=== PATIENT | female | born 1960 | race Caucasian/White ===

== ENCOUNTER 2022-05-07 10:36 | Outpatient (CLI) | payer OTHER, SELFPAY ==
--- OUTSIDE RECORDS SUMMARY | 2022-05-07 10:39 | XMS_ITS | Clinical Summary ---
:1960 Author Organization [facility] Address [address] [place] [address]. [place] [address] Care Team Providers Name Role Phone Jen De Jesus MD Primary Care Provider Allergies No known active allergies Medications Medication Sig Dispensed Refills Start Date End Date Status levothyroxine 0 05/16/2021 Activ e (SYNTHROID/LEVOTHROID) 137 MCG tablet sertraline (ZOLOFT) 100 Take 50 mg by 0 10/18/2021 Active MG tablet mouth daily zolpidem (AMBIEN) 5 MG TAKE ONE TABLET 0 10/07/2021 Active tablet BY MOUTH AT BEDTIME NEEDED FOR SLEEP Family History Medical History Relation Comments Colon Cancer Father Hypertension Father Relation Status Comments Father Social History Tobacco Use Types Packs/Day Years Used Date Former Smoker Smokeless Tobacco: Never Used Alcohol Habits Answer Date Recorded How often do you have a drink containing alcohol? Not asked How many drinks containing alcohol do you have on a typical Not asked day when you are drinking? How often do you have six or more drinks on one occasion? 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 Pulse 56 11/17/2021 9:51 AM CATERING ADMINISTRATIVE ASSISTANT Temperature - - Respiratory Rate 19 11/17/2021 9:51 AM CATERING ADMINISTRATIVE ASSISTANT Oxygen Saturation 100% 11/17/2021 9:51 AM CATERING ADMINISTRATIVE ASSISTANT Inhaled Oxygen Concentration - - Weight - - Height - - Body Mass Index - - Plan of Treatment Health Maintenance Due Date Last Done Comments ADVANCE CARE PLANNING 1960 ANNUAL REVIEW OF HM ORDERS 1960 CT COLONOGRAPHY 1958 FIT-DNA (Cologuard) 1960 FIT 1960 FLEX SIG 1960 MAMMO SCREENING 1960 PREVENTIVE CARE VISIT 1958 HIV SCREENING 1973 HEPATITIS C SCREENING 1976 PAP 1979 LIPID 2003 LUNG CANCER SCREENING 2008 ZOSTER IMMUNIZATION (1 of 2) 2008 DTAP/TDAP/TD IMMUNIZATION (2 06/14/2016 06/14/2006 - Td or Tdap) PHQ-2 (once per calendar 09/26/2021 year) COVID-19 Vaccine (3 - Booster 02/22/2022 10/25/2021, for Ko series) 01/01/2021 INFLUENZA VACCINE (Season 05/27/2022 07/02/2010 Ended) COLONOSCOPY 11/17/2031 11/17/2021, 11/17/2021 COLORECTAL CANCER SCREENING 11/17/2031 HEPATITIS B IMMUNIZATION Aged Out No long er eligible based on patient's age to complete this to pic IPV IMMUNIZATION Aged Out No longer eligi ble based on patient's age to complete this to pic MENINGITIS IMMUNIZATION Aged Out No longe r eligible based on patient's age to complete this to pic Pneumococcal Vaccine: Aged Out No longer eligible based Pediatrics (0 to 5 Years) and on patient's age to At-Risk Patients (6 to 64 comple te this topic Years) Insurance Payer Benefit Plan / Subscriber ID Effective Dates Phone Addre ss Type Group UCARE UCARE INDIVIDUAL [id number] 2021-Present [phone] [address] [place] [id number] (Home) [phone] Juan CROWE (Work) [phone] Care Teams Student Driving Instructor Relationship Specialty Start Date End Date Jen De Jesus MD PCP - General mutuel teller 11/17/[id number] [place] [id number]
--- OUTSIDE RECORDS SUMMARY | 2022-05-07 10:39 | XMS_ITS | Encounter Summary ---
:1960 Author Organization [facility] Address [address] [place] [address] Care Team Providers Name Role Phone Jen De Jesus MD Primary Care Provider [phone] Reason for Visit Auth/Cert Specialty Diagnoses / Procedures Referred By Contact Refer red To Contact Gastroenterology Diagnoses Special screening for malignant neoplasms, colon Special screening for malignant neoplasms, colon [Z12.11] Endoscopy Procedures [facility] COLONOSCOPY W/WO BRUSH/WASH COLONOSCOPY [address] [place] [phone] Phone: Referral ID Status Reason Start Date Expiration Date Visits Requ ested Visits Authorized [id number] 1 1 Encounter Details Date Type Department Care Team Description 11/17/2021 Surgery [facility] Colette gary MD COLONOSCOPY Endoscopy COLON RECTAL SURGERY [address] [place] [id number] [place] [id number] (Wo rk) Surgery Details Date/Time Status Location OR Service Patient Class Case Case Trauma Class Type Case? 11/17/21 9:00 Posted GI GI 02 [facility] AM Panel 1 Procedure [facility] Anes Op Region Wound Class Commen ts COLONOSCOPY N/A Conscious Sedation Rectum II-Clean Contami nated Surgeon Surgeon Role Service Panel Colette Rowan MD Primary [place] 1 documented in this encounter Social History Tobacco Use Types Packs/Day Years [...] Assigned at Date Recorded Not on file documented as of this encounter Last Filed Vital Signs Vital Sign Reading Time Taken Comments Blood Pressure 93/54 11/17/2021 9:41 AM [facility] Pulse 62 11/17/2021 9:41 AM [facility] Temperature - - Respiratory Rate 14 11/17/2021 9:41 AM [facility] Oxygen Saturation 100% 11/17/2021 9:41 AM [facility] Inhaled Oxygen Concentration - - Weight - - Height - - Body Mass Index - - documented in this encounter Medications at Time of Discharge Medication Sig Dispensed Refills Start Date End Date levothyroxine 0 05/16/2021 (SYNTHROID/LEVOTHROID) 137 MCG tablet sertraline (ZOLOFT) 100 MG Take 50 mg by mouth 0 10/18/2021 tablet daily zolpidem (AMBIEN) 5 MG TAKE ONE TABLET BY 0 10/07 tablet MOUTH AT BEDTIME NEEDED FOR SLEEP documented as of this encounter H&P Notes Colette Rowan MD - 11/17/2021 8:47 AM CST Pre-Endoscopy History and Physical Shahnaz Pena Date of : 1960 Age: [age] year old Date of Procedure: 11/17/21 Primary care provider: Jen De Jesus Type of Endoscopy: Colonoscopy Reason for Procedure: screening, family history of colon cancer Type of Anesthesia Anticipated: Moderate Sedation HPI: Shahnaz is a 61 year old female who will be undergoing the above procedure. A history and physical has been performed. The patient's medications and allergies have been reviewed. The risks and benefits of the procedure and the sedation options and risks were discussed with thepatient. All questions were answered and informed consent was obtained. She denies a personal or family history of anesthesia complications or bleeding disorders. No Known Allergies Allergy to Latex: NO Allergy to tape: NO Intolerances: n/a No current facility-administered medications on file prior to encounter. levothyroxine (SYNTHROID/LEVOTHROID) 137 MCG tablet, sertraline (ZOLOFT) 100 MG tablet, Take 50 mg by mouth daily zolpidem (AMBIEN) 5 MG tablet, TAKE ONE TABLET BY MOUTH AT BEDTIME NEEDED FOR SLEEP There is no problem list on file for this patient. No past medical history on file. No past surgical history on file. Social History Tobacco Use ??? Smoking status: Former Smoker ??? Smokeless tobacco: Never Used Substance Use Topics ??? Alcohol use: Not on file Comment: social Family History Problem Relation Age of Onset ??? Colon Cancer Father ??? Hypertension Father REVIEW OF SYSTEMS: 5 point ROS negative except as noted above in HPI, including Gen., Resp., CV, GI & system review. PHYSICAL EXAM: There were no vitals taken for this visit. There is no height or weight on file to calculate BMI. All Vitals have been reviewed. GENERAL APPEARANCE: healthy and alert MENTAL STATUS: alert HEENT: NC/AT, normal neck mobility RESP: lungs clear to auscultation - no rales, rhonchi or wheezes CV: regular rates and rhythm IMPRESSION ASA Class 2 - Mild systemic disease PLAN: Plan for colonoscopy. We discussed the risks, benefits and alternatives and the patient wished to proceed. The above has been forwarded to the consulting provider. Colette Rowan MD [facility] November 17, 2021 [facility] documented in this encounter Plan of Treatment Not on filedocumented as of this encounter Procedures Procedure Name Priority Date/Time Associated Diagnosis Comme nts COLONOSCOPY 11/17/2021 9:10 AM Special screening for [employer] [facility] malignant neoplasms, colon COLONOSCOPY Routine 11/17/2021 8:50 AM Results f or this [employer] [employer] [facility] [facility] procedure are i n the results section . documented in this encounter Results COLONOSCOPY (11/17/2021 8:50 AM [facility] [facility]) [facility] Method Time Signature COLONOSCOPY [facility] RADIOLOGY [address] ??[place] ??[id number] RESULTS Patient Name: Shahnaz Pena ?Procedure D ate: 11/17/2021 8:50 AM ? Accou nt Number: [id number] Date of : 1960 ? Admit Type: Out patient Age: 61 ?Note Status: Finalized Attending MD: Colette Rowan MD Total Sedation Time: 19 minutes Instrument Name: 410 [id number] Colonoscope Procedure: ?Colonoscopy Indications: ?Screening patient at increased risk: Family history ?of 1st-degree relative with colorectal cancer at ?age 60 years (or olde r) Providers: ?Colette Rowan MD, Ange Alcala RN Referring MD: ? Jen De Jesus MD Medicines: ?Midazolam 2 mg IV, Fentanyl 100 micrograms IV Complications: ?No immediate complications. Procedure: ?Pre-Anesthesia Assessment: ?- Prior to the procedure, a History and Physical ?was performed, and patient medications and ?allergies were reviewed. The patient is competent. ?The risks and benefits of the procedure and the ?sedation options and risks were discussed with the ?patient. All questions were answered and informed ?consent was obtained. Patient identification and ?proposed procedure were verified by the physician ?and the nurse in the procedure room. Mental Status ?E xamination: alert and oriented. Airway ?Examination: normal oropharyngeal airway and neck ?mobility. Respiratory Examination: clear to ?auscultation. CV Examination: normal. Prophylactic ?Antibiotics: The patient does not require ?prophylactic antibiotics. Prior Anticoagulants: The ?patient has taken no anticoagulant or antiplatelet ?agents. ASA Grade Assessment: II - A patient with ?mild systemic disease. After reviewing the risks ?a nd benefits, the patient was deemed in ?satisfactory condition to undergo the procedure. ?The anesthesia plan was to use moderate sedation / ?analgesia (conscious sedation). Immediately prior ?to administration of medications, the patient was ?re-assessed for adequacy to receive sedatives. The ?heart rate, respiratory rate, oxygen saturations, ?blood pressure, adequacy of pulmonary ventilation, ?and response to care were monitored throughout the ?procedure. The physical status of the patient was ?re-assessed after the procedure. ?After obtaining informed consent, the colonoscope ?was passed under direct vision. Throughout the ?procedure, the patient's blood pressure, pulse, and ?oxygen saturations were monitored continuously. The ?Colonoscope was introduced through the anus and ?advanced to the cecum, identified by appendiceal ?orifice and ileocecal valve. The colonoscopy was ?performed without difficulty. The patient tolerated ?the procedure well. The quality of the bowel ?preparation was excel lent. ? Findings: ? The perianal and digital rectal examinations were nor mal. ? The entire examined colon appeared normal on direct and retroflexion ? views. ? Impression: ? - The entire examined colon is normal on direct and ?retroflexion views. ?- No specimens collec lay. Recommendation: ? - Discharge patient to home. ?- Patient has a contact number available for ?emergencies. The signs and symptoms of potential ?delayed complications were discussed with the ?patient. Return to normal activities tomorrow. ?Written discharge instructions were provided to the ?patient. ?- Repeat colonoscopy in 5 years for screening ?purposes. ? Procedure Code(s): ? --- Professional --- ? G0105, Colorectal cancer screening; colonoscopy on individual at high ? risk Diagnosis Code(s): ? --- Professional --- ? Z80.0, Family history of malignant neoplasm of digest lakisha organs CPT copyright 2020 [employer]. All rights reserved. The codes documented in this report are prelimin aureliano and upon data coder operator review may be revised to meet current compliance requirements. Electronic Signature by Dr Colette Rowan Colette Rowan MD 11/17/2021 9:33:33 AM I was physically present for the entire viewing portion of t he exam. Colette Rowan MD Number of Addenda: 0 Note Initiated On: 11/17/2021 8:50 AM Scope Withdrawal Time: 0 hours 7 minutes 51 seconds Total Procedure Duration: 0 hours 18 minutes 6 seconds Scope In: 9:12:51 AM Scope Out: 9:30:57 AM Specimen (Source) Anatomical Collection Method Collection Time Re ceived Time Location / / Volume Laterality 11/17/2021 8:50 AM [employer] [facility] Jen De Jesus MD PROCEDURES Performing Organization Address City/State/ZIP Code Phon e Number RADIOLOGY RESULTS documented in this encounter Visit Diagnoses Diagnosis Special screening for malignant neoplasm s, colon documented in this encounter Administered Medications Inactive Administered Medications - up to 3 most recent administrations Medication Order MAR Action Action Date Dose Rate Site fentaNYL (PF) (SUBLIMAZE) Given 11/17/2021 9:11 AM [facility] [facility] 100 mcg injection Intravenous, PRN, Administer over 3-5 Minutes, Starting on Tue11/17/21 at 0911 lidocaine (LMX4) cream Topical, EVERY 1 HOUR PRN, pain, with VAD insertion, S tarting on Tue11/17/21 at 0938, Apply at least 30 minutes prior to VAD insertion in divided doses as needed for size of site for insertion. MAX Dose: 2.5 g (?? of 5 g tube) Do NOT give if patient has a history of allergy to any local anesthetic or any miladys product. Do NOT use both lidocaine intradermal/subcu taneous injection and the lidocaine cream on the same site., Pre-procedure lidocaine 1 % 0.1-1 mL 0.1-1 mL, Other, EVERY 1 HOUR PRN, mild pain with VAD insertion, Starting on Tue11/17/21 at 0938, MAX dose 1 mL subcutane ous OR intradermal along the side of the vein in divided doses as needed for VAD insertion. Do NOT give if patient has a history of allergy to any local anesthet ic or any miladys product. Do NOT use both lidocaine intradermal/subcutaneous injec tion and the lidocaine cream on the same site., Pre-procedure midazolam (VERSED) injection Given 11/17/2021 9:11 AM [employer] [employer] [facility] 2 mg Intravenous, Administer over 2 Minutes, PRN, Starting on Tue11/17/21 at 0911 ondansetron (ZOFRAN) injection 4 mg 4 mg, Intravenous, ONCE PRN, nausea, vomiting, Adminis ter over 2-5 Minutes, Starting on Tue11/17/21 at 0938, For 1 d ose, Give in ENDO pre procedure prep area. Irritant., Pre-procedure ondansetron (ZOFRAN) injection 4 mg 4 mg, Intravenous, EVERY 6 HOURS PRN, nausea, vomiting , Administer over 2-5 Minutes, Starting on Tue11/17/21 at 0938, This is Step 1 of nausea and vomiting management. If nausea not resolved in 15 minutes, go t o Step 2 prochlorperazine (COMPAZINE). Irritant. ondansetron (ZOFRAN-ODT) ODT tab 4 mg 4 mg, Oral, EVERY 6 HOURS PRN, nausea, v omiting, Starting on Tue11/17/21 at 0938, This is Step 1 of nausea and vomiting management. If n ausea not resolved in 15 minutes, go to Step 2 prochlorperazine (COMPAZINE). Do not push through foil backing. Peel back foil and gently remove. Place on to ngue immediately. Administration with liquid unnecessary W ith dry hands, peel back foil backing and gently remove tablet. Do not push oral d isintegrating tablet through foil backing. Administer immediately on tongue and oral disintegrati ng tablet dissolves in seconds, then swallow with saliva. Liquid not required . prochlorperazine (COMPAZINE) injection 1 0 mg 10 mg, Intravenous, EVERY 6 HOURS PRN, nausea, vomitin g, Administer over 1-2 Minutes, Starting on Tue11/17/21 at 0938, This is Step 2 of nausea and vomiting management. If nausea not resolved in 15-30 minutes, N otify provider. prochlorperazine (COMPAZINE) tablet 10 m g 10 mg, Oral, EVERY 6 HOURS PRN, nausea, vomiting, Starting on Tue11/17/21 at 0938, This is Step 2 of nausea and vomiting ma nagement. If nausea not resolved in 15-30 minutes, Notify provider. sodium chloride (PF) 0.9% PF flush 3 mL 3 mL, Intracatheter, EVERY 8 HOURS, First dose on Tue11/17/21 at 1000, to lock peripheral IV dormant line, Pre-procedure sodium chloride (PF) 0.9% PF flush 3 mL 3 mL, Intracatheter, EVERY 1 MIN PRN, li ne flush, other, to ensure patency or to lock dormant line, Starting on Tue11/17/21 at 0938, Pr e-procedure sodium chloride 0.9% infusion New Bag 11/17/2021 9:09 AM 125 mL/hr 125 mL/hr Intravenous, CONTINUOUS PRN, [employer] Starting on Tue11/17/21 at 0909, Until Tue11/17/21 at 0909 documented in this encounter Active and Recently Administered Medications Times are shown in [employer] [facility]. Scheduled Medication Order 11/15/2021 11/16/2021 11/17/2021 sodium chloride (PF) 0.9% PF flush 3 mL 1000 (Canceled Entry - Provider: Orders Generic Provider - Comment: Automatically canceled at discontinue of medication order) 3 mL, Intracatheter, EVERY 8 HOURS, Firs t dose on Tue11/17/21 at 1000, to lock peripheral IV dormant line, Pre-procedure PRN Medication Order 11/15/2021 11/16/2021 11/17/2021 fentaNYL (PF) (SUBLIMAZE) injection (COMPLETED) 910 (Given - Provider: Michelle Solano, RN) Intravenous, PRN, Administer over 3-5 Minutes, Starting on T u11/17/21 at 0911 flumazenil (ROMAZICON) injection 0.2 mg 0.2 mg, Intravenous, EVERY 1 MIN PRN, be nzodiazepine reversal, over sedation, Administer over 1 Minutes, Starting on Tue11/17/21 at 0938, For 12 hours, Give over 15 seconds. If inadequate response after 45 seconds, may repeat up to a MAX tota l dose of 1 mg. Continue monitoring until discharge criteria are met for a minimum of 2 hours Irritant. Use with caution in patients on benzodiazepine therapy. lidocaine (LMX4) cream Topical, EVERY 1 HOUR PRN, pain, with VA D insertion, Starting on Tue11/17/21 at 0938, Apply at least 30 minutes prior to VAD insertion in divided doses as needed for size of site for insertion. MAX Dose : 2.5 g (?? of 5 g tube) Do NOT give if patient has a history of allergy to any local anesthetic or any miladys product. Do NOT use both lidocaine intradermal/subcutaneous injection and the lidocaine cream on the same site., Pre-procedure lidocaine 1 % 0.1-1 mL 0.1-1 mL, Other, EVERY 1 HOUR PRN, mild pain with VAD insertion, Starting on Tue11/17/21 at 0938, MAX dose 1 mL subcutaneous OR intradermal along the side of the vein in divided doses as needed for VAD insertion. Do NOT give if patient has a history of allergy to any local anesthetic or any miladys product. Do NOT use both lidocaine intradermal/subcutaneous injection and the lidocaine cream on the same site., Pre-procedure midazolam (VERSED) injection (COMPLETED) 910 (Given - Provider: Michelle Solano, RN) Intravenous, Administer over 2 Minutes, PRN, Starting on 10/28 at 0911 naloxone (NARCAN) injection 0.2 mg 0.2 mg, Intravenous, EVERY 2 MIN PRN, op ioid reversal, Starting on Tue11/17/21 at 0938, Administer intravenous route when available and notify provider when administered. For unintended sedation or resp iratory depression if all of the below c riteria are met: ~ respiratory rate LESS than or EQUAL to 8. ~SaO2 less than 92% and or/end-tidal CO2 is greater than 50. ~ the patient is receiving an opioid, waters s unintended sedations assessed as RASS (-3), and is currently not on mechanical ventilation. RASS scale moderate (-3) is movement or eye opening to voice but no eye contact. Patient Monitoring Once the patient has demonstrated a response to the naloxone, continue to monitor respiratory rate, depth, oxygen saturation and end-tidal CO2 (if available) every 15 minutes x 2, then every 30 minutes x 2, the n every 1 hour x 1 after each naloxone d ose. Consider transfer to ICU if patient respiratory parameters have not improved after 4 naloxone doses. naloxone (NARCAN) injection 0.2 mg 0.2 mg, Intramuscular, EVERY 2 MIN PRN, opioid reversal, Starting on Tue11/17/21 at 0938, Administer intramuscular if an intravenous route is not available and notify provider when administered. For uni ntended sedation or respiratory depressi on if all of the below criteria are met: ~ respiratory rate LESS than or EQUAL to 8. ~SaO2 less than 92% and or/end- tidal CO2 is greater than 50. ~ the patient is receiving an opioid, has unintended sed ations assessed as RASS (-3), and is currently not on mechanical ventilation. RASS scale moderate (-3) is movement or eye opening to voice but no eye contact. Pat ient Monitoring Once the patient has dem onstrated a response to the naloxone, continue to monitor respiratory rate, depth, oxygen saturation and end-tidal CO2 (if available) every 15 minutes x 2, then e very 30 minutes x 2, then every 1 hour x 1 after each naloxone dose. Consider transfer to ICU if patient respiratory parameters have not improved after 4 naloxone doses. naloxone (NARCAN) injection 0.4 mg 0.4 mg, Intravenous, EVERY 2 MIN PRN, op ioid reversal, Starting on Tue11/17/21 at 0938, Administer intravenous route when available and notify provider when administered. For unintended sedation or resp iratory depression if all of the below c riteria are met: ~ respiratory rate LESS than or EQUAL to 8. ~ SaO2 less than 92% and or/end-tidal CO2 is greater than 50. ~ the patient is receiving an opioid, h as unintended sedation assessed as RASS (-4) or (-5) and patient is currently not on mechanical ventilation. RASS scale (-4) is deep sedation with no response to voice but movement or eye opening to phy sical stimulation. RASS scale (-5) is un arousable. Patient Monitoring Once the patient has demonstrated a response to the naloxone, continue to monitor respiratory rate, depth, oxygen saturation and end -tidal CO2 (if available) every 15 minut es x 2, then every 30 minutes x 2, then every 1 hour x 1 after each naloxone dose. Consider transfer to ICU if patient respiratory parameters have not improved after 4 naloxone doses. naloxone (NARCAN) injection 0.4 mg 0.4 mg, Intramuscular, EVERY 2 MIN PRN, opioid reversal, Starting on Tue11/17/21 at 0938, Administer intramuscular if an intravenous route is not available and notify provider when administered. For uni ntended sedation or respiratory depressi on if all of the below criteria are met: ~ respiratory rate LESS than or EQUAL to 8. ~ SaO2 less than 92% and or/end- tidal CO2 is greater than 50. ~ the patient i s receiving an opioid, has unintended se dation assessed as RASS (-4) or (-5) and patient is currently not on mechanical ventilation. RASS scale (-4) is deep sedation with no response to voice but moveme nt or eye opening to physical stimulatio n. RASS scale (-5) is unarousable. Patient Monitoring Once the patient has demonstrated a response to the naloxone, continue to monitor respiratory rate, depth, o xygen saturation and end-tidal CO2 (if a vailable) every 15 minutes x 2, then every 30 minutes x 2, then every 1 hour x 1 after each naloxone dose. Consider transfer to ICU if patient respiratory parameters have not improved after 4 naloxone doses. ondansetron (ZOFRAN) injection 4 mg 4 mg, Intravenous, ONCE PRN, nausea, vom iting, Administer over 2-5 Minutes, Starting on Tue11/17/21 at 0938, For 1 dose, Give in ENDO pre procedure prep area. Irritant., Pre-procedure ondansetron (ZOFRAN) injection 4 mg(Linked Group 1) 4 mg, Intravenous, EVERY 6 HOURS PRN, na usea, vomiting, Administer over 2-5 Minutes, Starting on Tue11/17/21 at 0938, This is Step 1 of nausea and vomiting management. If nausea not resolved in 15 minut es, go to Step 2 prochlorperazine (COMPAZINE). Irritant. ondansetron (ZOFRAN-ODT) ODT tab 4 mg(Linked Group 1) 4 mg, Oral, EVERY 6 HOURS PRN, nausea, v omiting, Starting on Tue11/17/21 at 0938, This is Step 1 of nausea and vomiting management. If nausea not resolved in 15 minutes, go to Step 2 prochlorperazine (C OMPAZINE). Do not push through foil back ing. Peel back foil and gently remove. Place on tongue immediately. Administration with liquid unnecessary With dry hands, peel back foil backing and gently remov e tablet. Do not push oral disintegratin g tablet through foil backing. Administer immediately on tongue and oral disintegrating tablet dissolves in seconds, then swallow with saliva. Liquid not required. prochlorperazine (COMPAZINE) injection 10 mg(Linked Group 2) 10 mg, Intravenous, EVERY 6 HOURS PRN, n ausea, vomiting, Administer over 1-2 Minutes, Starting on Tue11/17/21 at 0938, This is Step 2 of nausea and vomiting management. If nausea not resolved in 15-30 minutes, Notify provider. prochlorperazine (COMPAZINE) tablet 10 mg(Linked Group 2) 10 mg, Oral, EVERY 6 HOURS PRN, nausea, vomiting, Starting on Tue11/17/21 at 0938, This is Step 2 of nausea and vomiting management. If nausea not resolved in 15-30 minutes, Notify provider. sodium chloride (PF) 0.9% PF flush 3 mL 3 mL, Intracatheter, EVERY 1 MIN PRN, li ne flush, other, to ensure patency or to lock dormant line, Starting on Tue11/17/21 at 0938, Pre-procedure sodium chloride 0.9% infusion (COMPLETED) 908 (New Bag - Provider: Fredrick; Ange Solano, RN) Intravenous, CONTINUOUS PRN, Starting on Tue11/17/21 at 0909, Until Discontinued Linked Groups Order Group 1: ondansetron (ZOFRAN-ODT) ODT tab 4 mgJump to med 4 mg, Oral, EVERY 6 HOURS PRN, nausea, v omiting, Starting on Tue11/17/21 at 0938
This is Step 1 of nausea and vomiting management. If nausea not resolved in 15 minutes, go to Step 2 prochlorperazine (COMPAZINE). Do not push through foil backing. Peel back foil and gently remove. Place on tongue immediately. Administration with liquid unnecessary With dry hands, pee l back foil backing and gently remove ta blet. Do not push oral disintegrating tablet through foil backing. Administer immediately on tongue and oral disintegrating tablet dissolves in seconds, then swallow with saliva. Liquid not required.
Or ondansetron (ZOFRAN) injection 4 mgJump to med 4 mg, Intravenous, EVERY 6 HOURS PRN, na usea, vomiting, Administer over 2-5 Minutes, Starting on Tue11/17/21 at 0938
This is Step 1 of nausea and vomiting management. If naus ea not resolved in 15 minutes, go to Reji p 2 prochlorperazine (COMPAZINE). Irritant.
Group 2: prochlorperazine (COMPAZINE) injection 10 mgJump to med 10 mg, Intravenous, EVERY 6 HOURS PRN, n ausea, vomiting, Administer over 1-2 Minutes, Starting on Tue11/17/21 at 0938
This is Step 2 of nausea and vomiting management. If nausea not resolved in 15-30 minutes, Notify provider.
Or prochlorperazine (COMPAZINE) tablet 10 mgJump to med 10 mg, Oral, EVERY 6 HOURS PRN, nausea, vomiting, Starting on Tue11/17/21 at 0938
This is Step 2 of nausea and vomiting management. If nausea not resolved in 15-30 minutes, Notify provider.
documented in this encounter Care Teams [employer] Shader Relationship Specialty Start Date End Date Jen De Jesus MD PCP - General test engineering intern 11/17/[address] [address] documented as of this encounter
--- OUTSIDE RECORDS SUMMARY | 2022-05-07 10:40 | XMS_ITS | Encounter Summary ---
:1960 Author Organization [place] Address [address] [place] [address] Care Team Providers Name Role Phone Jen De Jesus MD Primary Care Provider [phone] Reason for Visit Auth/Cert Specialty Diagnoses / Procedures Referred By Contact Refer red To Contact Gastroenterology Diagnoses Special screening for malignant neoplasms, colon Special screening for malignant neoplasms, colon [Z12.11] Sh Endoscopy Procedures HC COLONOSCOPY W/WO BRUSH/WASH COLONOSCOPY [address] [phone] Phone: Referral ID Status Reason Start Date Expiration Date Visits Requ ested Visits Authorized [id number] 1 1 Encounter Details Date Type Department Care Team Description 11/17/2021 Hospital Encounter [facility] Endoscopy MD Kayla [address] COLON RECTAL [place] [id number] SURGERY [phone] [address] [id number] (Wo rk) Social History Tobacco Use Types Packs/Day Years [...] Comments Blood Pressure 98/57 11/17/2021 9:51 AM ROLL OVER LOADER Pulse 56 11/17/2021 9:51 AM ROLL OVER LOADER Temperature - - Respiratory Rate 19 11/17/2021 9:51 AM ROLL OVER LOADER Oxygen Saturation 100% 11/17/2021 9:51 AM ROLL OVER LOADER Inhaled Oxygen Concentration - - Weight - [...] [facility] November 17, 2021 OVER LOADER documented in this encounter Plan of Treatment Not on filedocumented as of this encounter Procedures Procedure Name Priority Date/Time Associated Diagnosis Comme nts COLONOSCOPY 11/17/2021 9:10 AM Special screening for ROLL OVER LOADER malignant neoplasms, colon COLONOSCOPY Routine 11/17/2021 8:50 AM Results f or this ROLL OVER LOADER procedure are i n the results section . documented in this encounter Results COLONOSCOPY (11/17/2021 8:50 AM ROLL OVER LOADER) [facility] Method Time Signature COLONOSCOPY [facility] RADIOLOGY [address] ??[place] ??[id number] RESULTS Patient Name: Shahnaz Pena ?Procedure D ate: 11/17/2021 8:50 AM ? Accou nt Number: [id number] Date of : 1960 ? Admit Type: [...] of digest lakisha organs CPT copyright 2020 [employer]. All rights reserved. The codes documented in this report are prelimin aureliano and upon film laboratory technician review may be revised to meet current [...] / / Volume Laterality 11/17/2021 8:50 AM ROLL OVER LOADER Jen De Jesus MD PROCEDURES Performing Organization Address City/State/ZIP Code Phon e Number RADIOLOGY RESULTS documented in this encounter Visit Diagnoses Not on filedocumented in this encounter Administered Medications Inactive Administered Medications - up to 3 most recent administrations Medication Order MAR Action Action Date Dose Rate Site fentaNYL (PF) (SUBLIMAZE) Given 11/17/2021 9:11 AM ROLL OVER LOADER 100 mcg injection Intravenous, PRN, Administer over [...] midazolam (VERSED) injection Given 11/17/2021 9:11 AM ROLL OVER LOADER 2 mg Intravenous, Administer over 2 Minutes, [...] 125 mL/hr 125 mL/hr Intravenous, CONTINUOUS PRN, ROLL OVER LOADER Starting on Tue11/17/21 at 0909, Until Tue11/17/21 at 0909 documented in this encounter Active and Recently Administered Medications Times are shown in ROLL OVER LOADER. Scheduled Medication Order 11/15/2021 11/16/2021 11/17/2021 sodium chloride (PF) 0.9% PF flush 3 mL 1000 (Canceled Entry - Provider: Orders Generic Provider - Comment: Automatically canceled at discontinue of medication order) 3 mL, Intracatheter, EVERY 8 HOURS, Firs t dose on Tue11/17/21 at 1000, to lock peripheral IV dormant line, Pre-procedure PRN Medication Order 11/15/2021 11/16/2021 11/17/2021 fentaNYL (PF) (SUBLIMAZE) injection (COMPLETED) 0911 (Given - Provider: Michelle Solano, RN) Intravenous, PRN, Administer over 3-5 Minutes, Starting on T ue 11/17/21 at 0911 flumazenil (ROMAZICON) injection 0.2 mg [...] injection (COMPLETED) 910 (Given - Provider: Michelle Solano RN) Intravenous, Administer over 2 Minutes, PRN, [...] infusion (COMPLETED) 908 (New Bag - Provider: Michelle Solano, RN) Intravenous, CONTINUOUS PRN, Starting on [...] provider.
documented in this encounter Care Teams Truck Driver Teamster Relationship Specialty Start Date End Date Jen De Jesus MD PCP - General air traffic control operator 11/17/[address] [id number] documented as of this encounter
--- OUTSIDE RECORDS SUMMARY | 2022-05-07 10:40 | XMS_ITS | Encounter Summary ---
:1960 Author Organization [place] Address [address] [place] [address] Care Team Providers Name Role Phone Unavailable Primary Care Provider Unavailable Encounter Details Date Type Department Care Team Description 10/31/2021 Orders Only [facility] Jody Rowanily Encounter for [facility] MD Kayla screening for other [address] COLON RECTAL viral diseases [place] [address] SURGERY (Primary Dx) [phone] [address] [place] [id number] Social History Tobacco Use Types Packs/Day Years Used Date Never Assessed Sex Assigned at Date Recorded Not on file documented as of this encounter Plan of Treatment Scheduled Orders Name Type Priority Associated Diagnoses Order S chedule Asymptomatic COVID-19 Lab Routine Encounter for brittany blue Expected: 10/31/2021 Virus (Coronavirus) by PCR for other adolfo l diseases (Approximate), Expires: 2022 documented as of this encounter Visit Diagnoses Diagnosis Encounter for screening for other viral diseases - Primary documented in this encounter
[2022-05-07 15:40] LABS: Basophils Percent Auto 0.9 % (0.0-3.0); Hematocrit 40.4 % (33.0-51.0); Hemoglobin* 13.7 gm/dL (12.0-16.0); Lymphocytes Percent Auto 36.3 % (20-44); Mean Corpuscular HGB Conc 34 gm/dL (32-36); Mean Corpuscular Hemoglobin 30 pg (26-34); Mean Corpuscular Volume 90 fL (80-100); Monocytes Percent Auto 6.3 % (0.0-11.0); Neutrophils Percent Auto 54.5 % (42.0-72.0); Platelet Count* 185 K/uL (140-440); RDW Coefficient of Variation % 11.8 % (11.5-15.5); White Blood Count* 4.46 K/uL (4.50-11.00)
[2022-05-07 15:44] LABS: Slide Review Reflex No
[2022-05-07 15:53] LABS: Chloride* 98 mmol/L (96-114); Potassium* 4.4 mmol/L (3.6-5.1); Sodium* 134 mmol/L (135-149)
[2022-05-07 15:56] LABS: Blood Urea Nitrogen* 20 mg/dL (7-30); Carbon Dioxide* 27 mmol/L (20-32); Creatinine* 0.8 mg/dL (0.5-1.5); Estimated Glomerular Filt Rate 83 ml/min
[2022-05-07 15:57] LABS: Calcium* 9.4 mg/dL (8.4-10.6); Glucose* 94 mg/dL (60-115)
== END 2022-05-07 10:37 | disposition home or self-care (01) ==
LOC: KYNREF 10:38
PROVIDERS: Visit Provider Nurse Practitioner Family
DX: Z01.818 Encounter for other preprocedural examination (principal)
CPT/HCPCS: 36415; 80048; 85025

== ENCOUNTER 2022-05-10 09:03 | Outpatient (CLI) | payer OTHER, SELFPAY ==
--- OUTSIDE RECORDS SUMMARY | 2022-05-10 09:09 | XMS_ITS | Encounter Summary ---
:1960 Author Organization [place] Address [facility] [place] [address] Care Team Providers Name Role Phone Unavailable Primary Care Provider Unavailable Encounter Details Date Type Department Care Team Description [facility] MD Kayla for other viral diseases [address] [facility] COLON RECTAL SURGERY [place], [place] [address] [phone] [place] [address] [place] [phone] (Wo rk) Social History Tobacco Use Types Packs/Day Years Used Date Never Assessed Sex Assigned at Date Recorded Not on file documented as of this encounter Plan of Treatment Not on filedocumented as of this encounter Visit Diagnoses Diagnosis Encounter for screening for other viral diseases documented in this encounter
--- OUTSIDE RECORDS SUMMARY | 2022-05-10 09:09 | XMS_ITS | Encounter Summary ---
:1960 Author Organization [place] Address [address] [place] [address] Care Team Providers Name Role Phone Jen De Jesus MD Primary Care Provider [phone] Reason for Visit Auth/Cert Specialty Diagnoses / Procedures Referred By Contact Refer red To Contact Gastroenterology Diagnoses Special screening for malignant neoplasms, colon Special screening for malignant neoplasms, colon [Z12.11] Endoscopy Procedures HC COLONOSCOPY W/WO BRUSH/WASH COLONOSCOPY [address] [place] [address] Phone: Referral ID Status Reason Start Date Expiration Date Visits Requ ested Visits Authorized [id number] 1 1 Encounter Details Date Type Department Care Team Description 11/17/2021 Surgery [facility] Colette gary MD COLONOSCOPY Endoscopy COLON RECTAL SURGERY [address] [place] [address] [place] [id number] (Wo rk) Surgery Details Date/Time Status Location OR Service Patient Class Case Case Trauma Class Type Case? 11/17/21 9:00 Posted GI GI 02 [place] AM Panel 1 Procedure [facility] Anes Op Region Wound Class Commen ts COLONOSCOPY N/A Conscious Sedation Rectum II-Clean Contami nated Surgeon Surgeon Role Service Panel Co[place] Rowan MD Primary [place] 1 documented in this encounter Social History [...] Comments Blood Pressure 93/54 11/17/2021 9:41 AM BRAKE REPAIRER RAILROAD Pulse 62 11/17/2021 9:41 AM BRAKE REPAIRER RAILROAD Temperature - - Respiratory Rate 14 11/17/2021 9:41 AM BRAKE REPAIRER RAILROAD Oxygen Saturation 100% 11/17/2021 9:41 AM BRAKE REPAIRER RAILROAD Inhaled Oxygen Concentration - - Weight - [...] [facility] November 17, 2021 E REPAIRER RAILROAD documented in this encounter Plan of Treatment Not on filedocumented as of this encounter Procedures Procedure Name Priority Date/Time Associated Diagnosis Comme nts COLONOSCOPY 11/17/2021 9:10 AM Special screening for BRAKE REPAIRER RAILROAD malignant neoplasms, colon COLONOSCOPY Routine 11/17/2021 8:50 AM Results f or this BRAKE REPAIRER RAILROAD procedure are i n the results section . documented in this encounter Results COLONOSCOPY (11/17/2021 8:50 AM BRAKE REPAIRER RAILROAD) [facility] Method Time Signature COLONOSCOPY [facility] RADIOLOGY [address] ??[place] ??[id number] RESULTS Patient Name: Shahnaz Pena ?Procedure D ate: 11/17/2021 8:50 AM ? Accou nt Number: [id number] Date of : 1960 ? Admit Type: [...] this report are prelimin aureliano and upon fulling machine operator review may be revised to meet [...] / / Volume Laterality 11/17/2021 8:50 AM BRAKE REPAIRER RAILROAD Jen De Jesus MD PROCEDURES Performing Organization Address City/State/ZIP Code Phon e Number RADIOLOGY RESULTS documented in this encounter Visit Diagnoses Diagnosis Special screening for malignant neoplasm s, colon documented in this encounter Administered Medications Inactive Administered Medications - up to 3 most recent administrations Medication Order MAR Action Action Date Dose Rate Site fentaNYL (PF) (SUBLIMAZE) Given 11/17/2021 9:11 AM BRAKE REPAIRER RAILROAD 100 mcg injection Intravenous, PRN, Administer over [...] midazolam (VERSED) injection Given 11/17/2021 9:11 AM BRAKE REPAIRER RAILROAD 2 mg Intravenous, Administer over 2 Minutes, [...] 125 mL/hr 125 mL/hr Intravenous, CONTINUOUS PRN, BRAKE REPAIRER RAILROAD Starting on Tue11/17/21 at 0909, Until Tue11/17/21 at 0909 documented in this encounter Active and Recently Administered Medications Times are shown in BRAKE REPAIRER RAILROAD. Scheduled Medication Order 11/15/2021 11/16/2021 11/17/2021 sodium [...] provider.
documented in this encounter Care Teams Store Associate Relationship Specialty Start Date End Date Jen De Jesus MD PCP - General stapling machine operator 11/17/[address] [address] documented as of this encounter
--- OUTSIDE RECORDS SUMMARY | 2022-05-10 09:09 | XMS_ITS | Encounter Summary ---
:1960 Author Organization [place] Address [address] [place] [address] Care Team Providers Name Role Phone Unavailable Primary Care Provider Unavailable Encounter Details Date Type Department Care Team Description 10/31/[address] [facility] Jody Rowanily Encounter for [facility] MD Kayla screening for other [address] COLON RECTAL viral diseases [place] [address] SURGERY (Primary Dx) [phone] [address] [place] [id number] Social History Tobacco Use Types Packs/Day Years [...]
--- OUTSIDE RECORDS SUMMARY | 2022-05-10 09:09 | XMS_ITS | Clinical Summary ---
:1960 Author Organization [place] Address [address] [place] [address]. [place] [address] Care Team Providers Name Role Phone Jen De Jesus MD Primary Care Provider [phone] Allergies No known active allergies Medications Medication [...] Comments Blood Pressure 98/57 11/17/2021 9:51 AM SEWING MACHINE OPERATOR PAPER BAGS Pulse 56 11/17/2021 9:51 AM SEWING MACHINE OPERATOR PAPER BAGS Temperature - - Respiratory Rate 19 11/17/2021 9:51 AM SEWING MACHINE OPERATOR PAPER BAGS Oxygen Saturation 100% 11/17/2021 9:51 AM SEWING MACHINE OPERATOR PAPER BAGS Inhaled Oxygen Concentration - - Weight - [...] Addre ss Type Group UCARE UCARE INDIVIDUAL [id number] 2021-Present [phone] [address] [place] [address] [address] (Home) [phone] Juan CROWE (Work) [id number] Care Teams Epidemiology Investigator Relationship Specialty Start Date End Date Jen DeJ esus MD PCP - General recruiter account manager 11/17/[address] [place] [address]
--- OUTSIDE RECORDS SUMMARY | 2022-05-10 09:09 | XMS_ITS | Encounter Summary ---
:1960 Author Organization [place] Address [address] [facility] [place] [address] Care Team Providers Name Role Phone Jen De Jesus MD Primary Care Provider [phone] Reason for Visit Auth/Cert Specialty Diagnoses / Procedures Referred By Contact Refer red To Contact Gastroenterology Diagnoses Special screening for malignant neoplasms, colon Special screening for malignant neoplasms, colon [Z12.11] Sh Endoscopy Procedures HC COLONOSCOPY W/WO BRUSH/WASH COLONOSCOPY [address] [address] Phone: Referral ID Status Reason Start Date Expiration Date Visits Requ ested Visits Authorized [id number] 1 1 Encounter Details Date Type Department Care Team Description 11/17/2021 Hospital Encounter [facility] Endoscopy MD Kayla [address] COLON RECTAL [place] [address] SURGERY [phone] [address] [id number] (Wo rk) Social History Tobacco Use Types [...] Comments Blood Pressure 98/57 11/17/2021 9:51 AM RETAIL PLANNING MANAGER Pulse 56 11/17/2021 9:51 AM RETAIL PLANNING MANAGER Temperature - - Respiratory Rate 19 11/17/2021 9:51 AM RETAIL PLANNING MANAGER Oxygen Saturation 100% 11/17/2021 9:51 AM RETAIL PLANNING MANAGER Inhaled Oxygen Concentration - - Weight - [...] [facility] November 17, 2021 [place] PLANNING MANAGER documented in this encounter Plan of Treatment Not on filedocumented as of this encounter Procedures Procedure Name Priority Date/Time Associated Diagnosis Comme nts COLONOSCOPY 11/17/2021 9:10 AM Special screening for RETAIL PLANNING MANAGER malignant neoplasms, colon COLONOSCOPY Routine 11/17/2021 8:50 AM Results f or this RETAIL PLANNING MANAGER procedure are i n the results section . documented in this encounter Results COLONOSCOPY (11/17/2021 8:50 AM RETAIL PLANNING MANAGER) [facility] Method Time Signature COLONOSCOPY [facility] RADIOLOGY [address] ??[place] ??[address] RESULTS Patient Name: Shahnaz Pena ?Procedure D ate: 11/17/2021 8:50 AM ? Accou nt Number: [id number] Date of : 1960 ? Admit Type: [...] of digest lakisha organs CPT copyright 2020 [employer]. All rights reserved. The codes documented in this report are prelimin aureliano and upon toter review may be revised to meet current [...] / / Volume Laterality 11/17/2021 8:50 AM RETAIL PLANNING MANAGER Jen De Jesus MD PROCEDURES Performing Organization Address City/State/ZIP Code Phon e Number RADIOLOGY RESULTS documented in this encounter Visit Diagnoses Not on filedocumented in this encounter Administered Medications Inactive Administered Medications - up to 3 most recent administrations Medication Order MAR Action Action Date Dose Rate Site fentaNYL (PF) (SUBLIMAZE) Given 11/17/2021 9:11 AM RETAIL PLANNING MANAGER 100 mcg injection Intravenous, PRN, Administer over [...] midazolam (VERSED) injection Given 11/17/2021 9:11 AM RETAIL PLANNING MANAGER 2 mg Intravenous, Administer over 2 Minutes, [...] 125 mL/hr 125 mL/hr Intravenous, CONTINUOUS PRN, RETAIL PLANNING MANAGER Starting on Tue11/17/21 at 0909, Until Tue11/17/21 at 0909 documented in this encounter Active and Recently Administered Medications Times are shown in RETAIL PLANNING MANAGER. Scheduled Medication Order 11/15/2021 11/16/2021 11/17/2021 sodium [...] provider.
documented in this encounter Care Teams Clinical Dietitian Relationship Specialty Start Date End Date Jen De Jesus MD PCP - General refrigeration tech 11/17/[address] [id number] documented as of this encounter
[2022-05-10 17:27] LABS: SARS PCR* Negative SARS-CoV-2 (Negative)
== END 2022-05-10 09:04 | disposition home or self-care (01) ==
LOC: KYNREF 09:07
PROVIDERS: Visit Provider Nurse Practitioner Family
DX: Z20.822 Contact with and (suspected) exposure to COVID-19 (principal)
CPT/HCPCS: 87635

== ENCOUNTER 2022-05-11 06:18 | Day surgery (SDC) | payer OTHER, SELFPAY ==
[2022-05-11] VITALS (16 sets, daily range): BP systolic 96–130; BP diastolic 43–76; PULSE 53–74; RESP 12–16; TEMP 36.2–36.7; O2SAT 97–100; BMI 21.4
[2022-05-11] MEDS: LACTATED RINGERS 1000 ML 1,000 ML 100 ML IV (06:45)
[2022-05-11] MEDS: SODIUM CHLORIDE 0.9 % (FLUSH) 10 ML SYRINGE IVF (06:45)
--- NOTE | 2022-05-11 07:08 | SUR.PREOP ---
TIME?OUT:?0708 PT/Randall KELSEY RN/Tyrone SARAVIA MDA?VERIFICATION?OF?SURGICAL?SITE,?PROCEDURE,?AND?CONSENT OBTAINED?PRIOR?TO?INVASIVE?PROCEDURE.
[2022-05-11] MEDS: MIDAZOLAM HCL 1 MG/ML inj IVP (07:10)
[2022-05-11] MEDS: fentaNYL 100 MCG/2 ML inj IVP (07:10)
--- NOTE | 2022-05-11 07:19 | W.PM.NB ---
Nerve Block Nerve Block Time Seen by Provider: 07:15 Date Seen: 05/11/22 Type of block requested by surgeon for post-operative analgesia: popliteal Side: left Time out performed: Yes Verification of patient name: Yes Verification of date of : Yes Site marking: site marked Name of person performing procedure: Jose Luis Continuous monitoring Was continuous monitoring of O2 sat, B/P, media monitor, recorded every 15 minutes?: Yes Procedure Checklist: sterile prep, needles and gloves Ultrasound guided. Images saved: Yes Medications given in 5ml increments after negative aspiration: Ropivicaine %: 0.5 mL: 20 Needle gauge: 22 Patient tolerated procedure well: Yes Additional comments: Needle noted adjacent to nerve Block Charges Block Charge (with Pro Fee): Sciatic Nerve Use of Ultrasound Machine for Block: Yes- US Guidance/pain block
--- NOTE | 2022-05-11 07:20 | W.PM.NB ---
Nerve Block Nerve Block Time Seen by Provider: 07:15 Date Seen: 05/11/22 Type of block requested by surgeon for post-operative analgesia: adductor canal Side: left Time out performed: Yes Verification of patient name: Yes Verification of date of : Yes Site marking: site marked Name of person performing procedure: Jose Luis Continuous monitoring Was continuous monitoring of O2 sat, B/P, manager monitoring, recorded every 15 minutes?: Yes Procedure Checklist: sterile prep, needles and gloves Ultrasound guided. Images saved: Yes Medications given in 5ml increments after negative aspiration: Ropivicaine %: 0.5 mL: 20 Needle gauge: 22 Patient tolerated procedure well: Yes Additional comments: Needle noted adjacent to nerve Block Charges Block Charge (with Pro Fee): Femoral Nerve Use of Ultrasound Machine for Block: Yes- US Guidance/pain block
[2022-05-11] MEDS: CEFAZOLIN 2 GM INJ IVP (07:35)
--- NOTE | 2022-05-11 07:50 | CRLHL7_ITS ---
For Patients: As a result of the Cures Act, medical imaging exams and procedure reports are released immediately into your electronic medical record. You may view this report before your referring provider. If you have questions, please contact your health care provider. Indication: FIBULAR PINNING Technique: Three fluoroscopic images of the left ankle. Fluoroscopic time 108.9 seconds. IMPRESSION: Fluoroscopic guidance for open reduction internal fixation of the distal fibula along with syndesmotic fixation. Dictated by Sulaiman Miranda MD @ 05/11/2022 9:20:44 AM (Electronically Signed)
--- NOTE | 2022-05-11 08:43 | PM.ORPRC ---
Procedure Note Date of procedure: 05/11/22 Procedure: SURGEON: Parish Henry MD MOTOR ELECTRICIAN: MERCED Moreno PREOPERATIVE DIAGNOSIS: Left ankle low Snell C fracture POSTOPERATIVE DIAGNOSIS: Left ankle low Snell C fracture NAME OF OPERATION: ORIF ANESTHESIA: Spinal plus popliteal block ESTIMATED BLOOD LOSS: 0 mL COMPLICATIONS: None SPECIMENS: None DRAINS: None PREOPERATIVE ANTIBIOTICS: Ancef 1 gram INDICATIONS: The patient is a 61-year-old female who sustained a left ankle fracture. ORIF was recommended. The risks, benefits and expected outcomes were discussed in detail. These included but were not limited to: Infection, bleeding, injury to blood vessel or nerve, venous thromboembolism. All questions were answered to their satisfaction. Use of an assistant superintendent was necessary throughout the case for patient positioning and safety, soft tissue retraction and closure. PROCEDURE: A popliteal block was placed by anesthesia. Final anesthesia was administered. The lower extremity was prepped and draped in the usual sterile fashion. A stab incision was made over the anterior and posterior aspect of the lateral malleolus. A reduction clamp was placed across the fracture. A guide pin was placed in the center of the distal fragment of the fibula, percutaneously. Its placement was confirmed with the image intensifier in multiple views. A stab incision was made around the guide pin. The opening Reamer was used. The guide pin was removed. The reduction finger was placed in the distal fragment. The distal fragment was held reduced. The reduction finger was taken across the fracture site. The longer, flexible guide pin was placed across the fracture, engaging the canal of the proximal fragment. The opening reamer was placed again, past the fracture site. The 3.2 mm reamer was used in the proximal fragment. We placed the Arthrex 3 mm x 130 mm intramedullary nail. The talons were deployed. We placed 2 screws in the distal fragment. Next, we placed a tight rope through the distal hole. Its placement was confirmed with the image intensifier. The automobile and property underwriter and screw guide were removed, We secured the tight rope and thenthe syndesmosis was stressed. There was no widening through the medial mortise or syndesmosis. The end cap was placed. Implants were imaged in the AP, mortise and lateral views and were felt to be well placed with an excellent reduction. The talus is nicely reduced under the tibial plafond. The wounds were irrigated with normal saline. The assistant superintendent closed the skin with a 3-0 nylon in a simple interrupted fashion. The assistant superintendent placed a dry dressing and short leg [place] splint. Sponge and needle counts were correct x 2. The patient tolerated the procedure well. There were no apparent complications. They were carefully transferred to the hospital bed and taken to the postanesthesia care unit in satisfactory condition. PLAN: The patient will be discharged to home. They will remain strict nonweightbearing on the lower extremity. They will continue to work on ice and elevation. They will follow up in the office in 2 weeks for a wound check and three views of the ankle out of the splint, prior to being seen, in preparation for a short-leg waterproof cast and continue nonweightbearing until she is 6 weeks post injury.
--- NOTE | 2022-05-11 09:00 | W.ANESCHARGE ---
Anesthesia Charges Start Date/Time Anesthesia Start Date: 05/11/22 Anesthesia Start Time: 07:28 Stop Date/Time Anesthesia Stop Date: 05/11/22 Anesthesia Stop Time: 08:58 Summary Emergency: No
--- NOTE | 2022-05-11 09:31 | W.ANESCHARGE ---
Anesthesia Charges Start Date/Time Anesthesia Start Date: 05/11/22 Anesthesia Start Time: 07:28 Stop Date/Time Anesthesia Stop Date: 05/11/22 Anesthesia Stop Time: 08:58 Summary Emergency: No
== END 2022-05-11 11:20 | disposition home or self-care (01) ==
LOC: OR 06:19
PROVIDERS: Visit Provider Orthopaedic Surgery
PROC: (CPT 27792; principal; 2022-05-11 07:30)
DX: S82.62XA Displaced fracture of lateral malleolus of left fibula, initial encounter for closed fracture (principal)
CPT/HCPCS: 27792; 01480; 64445; 64447; 73610; 76942; C1713; C1776; J0690; J2250; J2405; J2704; J2795; J3010; J7120